=== PATIENT | female | born 1970 | race American Indian/Alaskan Native ===

== ENCOUNTER 2018-03-06 11:51 | Emergency (ER) | payer SELFPAY ==
[2018-03-06] MEDS ORDERED: CATAPRES PO ONE ×2 (12:25→22:41)
[2018-03-06] MEDS ORDERED: CATAPRES ONE ×2 (12:26→22:45)
--- NOTE | 2018-03-06 17:27 | Emergency Department Report ---
Blank Doc - Documentation Documentation: 48-year-old female with a past medical history of CHF with an unknown ejection fraction and hypertension presents to the hospital complaining of headache, shortness of breath, and generalized weakness, and swelling to lower extremities. Patient has not been completely compliant with all her medications filled last 2 days because she traveled here from [place] and did not bring all her medication. She flew here from [place] 4 days ago. She denies taking a diuretic. She complains of worsening orthopnea dyspnea with activity she denies chest pain. She received clonidine 0.2 mg in triage and reports improvement in her symptoms. Repeat blood pressure initially still elevated with further repeat pending Given patient's significant cardiac history patient will be transferred to the main side for evaluation Labs, chest x-ray, rn lab ordered No signs of ST elevation AK on EKG
--- NOTE | 2018-03-06 17:58 | XRay Report ---
FINAL REPORT EXAM: XR CHEST ROUTINE 2V HISTORY: sob TECHNIQUE: PA and lateral views of the chest Comparison: None FINDINGS: The cardiac silhouette is markedly enlarged. The thoracic aorta is unremarkable. There is prominence of the pulmonary venous vasculature suggestive of pulmonary venous congestion. There is no definite evidence of focal infiltrate or pleural fluid collection. The bony structures are unremarkable. IMPRESSION: 1. The cardiac silhouette is markedly enlarged. Comparison with previous imaging studies would be helpful. 2. Findings suggestive of pulmonary venous congestion. 3. No definite evidence of focal infiltrate.
[2018-03-06 18:24] LABS: Basophils # (Auto) 0.1 K/mm3 (0.0-0.1); Basophils % (Auto) 1.5 % (0.0-1.8); Eosinophils # (Auto) 0.1 K/mm3 (0.0-0.4); Eosinophils % (Auto) 1.2 % (0.0-4.3); Hematocrit 34.2 % (30.3-42.9); Hemoglobin 10.9 gm/dl (10.1-14.3); Lymphocytes # (Auto) 1.1 K/mm3 (1.2-5.4); Lymphocytes % (Auto) 18.2 % (13.4-35.0); Mean Corpuscular HGB Conc 32 % (30-34); Mean Corpuscular Volume 79 fl (79-97); Monocytes # (Auto) 0.4 K/mm3 (0.0-0.8); Monocytes % (Auto) 5.8 % (0.0-7.3); Platelet Count 286 K/mm3 (140-440); Red Blood Count 4.33 M/mm3 (3.65-5.03); Red Cell Distribution Width 18.1 % (13.2-15.2)
[2018-03-06 18:25] LABS: Mean Corpuscular Hemoglobin 25 pg (28-32)
[2018-03-06 18:35] LABS: INR 1.09 (0.87-1.13)
[2018-03-06 18:36] LABS: Partial Thromboplastin Time 26.1 Sec. (24.2-36.6)
[2018-03-06 18:40] LABS: Creatine Kinase MB 2.5 ng/mL (0.0-4.0)
[2018-03-06 18:43] LABS: Albumin 3.4 g/dL (3.9-5); Calcium 9.4 mg/dL (8.4-10.2)
[2018-03-06] MEDS ORDERED: LASIX IV ONE (18:45)
--- NOTE | 2018-03-06 18:50 | Emergency Department Report ---
HPI - General Chief Complaint: Headache Time Seen by Provider: 03/06/18 16:56 - HPI HPI: Room 36 The patient is a 48-year-old female presenting with a chief complaint of shortness of breath. The patient states she developed shortness of breath at 05 :30 this morning. The patient states she has had dyspnea on exertion as well as 2 pillow orthopnea for one week. Patient denies chest pain or fever. Patient states she's had a dry cough for 5 days. The patient states she has noticed bilateral lower extremity edema for the past 2 days. Patient reports she flew in from [place] 03/04/2018. The patient states she was taken off of her diuretic one year ago Location: Lungs, heart Duration: [See above] Quality: Shortness of breath Severity: Moderate Modifying factors: [see above] Context: [see above] Mode of transportation: [not driving] ED Past Medical Hx - Past Medical History Hx Hypertension: Yes Hx Congestive Heart Failure: Yes - Surgical History Additional Surgical History: c sect - Family History Family history: no significant - Social History Smoking Status: Never Smoker Substance Use Type: None (denies illicit drug use) - Medications Home Medications: Home Medications Medication Instructions Recorded Confirmed Last Taken Type Cardiazol 40 mg PO BID 03/06/18 03/06/18 02/27/18 07:00 History Carvedilol [Coreg] 25 mg PO BID #60 tablet 03/07/18 Unknown Rx Furosemide [Lasix] 20 mg PO QDAY #7 tablet 03/07/18 Unknown Rx hydrALAZINE 100 mg PO BID #60 03/07/18 Unknown Rx ED Review of Systems ROS: Stated complaint: SOB/CHEST PAINS Other details as noted in HPI Constitutional: denies: fever ENT: denies: throat pain Respiratory: cough, orthopnea, shortness of breath, SOB with exertion Cardiovascular: denies: chest pain Endocrine: no symptoms reported Gastrointestinal: denies: abdominal pain Genitourinary: denies: dysuria Musculoskeletal: denies: back pain Neurological: denies: headache Physical Exam - Physical Exam Vital Signs: Vital Signs 03/06/18 03/06/18 12:12 13:53 Temperature 97.9 F Pulse Rate 76 68 Respiratory 20 Rate Blood Pressure 197/111 Blood Pressure 184/112 [Left] O2 Sat by Pulse 100 Oximetry Physical Exam: GENERAL: The patient is well-developed well-nourished female lying on stretcher not appearing to be in acute distress. [] HEENT: Normocephalic. Atraumatic. Extraocular motions are intact. Patient has moist mucous membranes. NECK: Supple. Trachea midline CHEST/LUNGS: Clear to auscultation. There is no respiratory distress noted. HEART/CARDIOVASCULAR: Regular. There is no tachycardia. There is no gallop rub or murmur. ABDOMEN: Abdomen is soft, nontender. Patient has normal bowel sounds. There is no abdominal distention. SKIN: There is no rash. There is 1-2+ bilateral lower extremity pitting edema. There is no diaphoresis. NEURO: The patient is awake, alert, and oriented. The patient is cooperative. The patient has normal speech MUSCULOSKELETAL: There is no evidence of acute injury. ED Course Vital Signs 03/06/18 03/06/18 12:12 13:53 Temperature 97.9 F Pulse Rate 76 68 Respiratory 20 Rate Blood Pressure 197/111 Blood Pressure 184/112 [Left] O2 Sat by Pulse 100 Oximetry - Reevaluation(s) Reevaluation #1: 03/06/18 22:42 Patient states she feels much improved and prefers to go home ED Medical Decision Making - Lab Data Result diagrams: 03/06/18 18:09 03/06/18 18:09 Laboratory Tests 03/06/18 03/06/18 03/06/18 18:09 18:09 18:09 WBC 6.2 RBC 4.33 Hgb 10.9 Hct 34.2 MCV 79 MCH 25 L MCHC 32 RDW 18.1 H Plt Count 286 Lymph % (Auto) 18.2 [place] % (Auto) 5.8 Eos % (Auto) 1.2 Baso % (Auto) 1.5 Lymph # 1.1 L [place] # 0.4 Eos # 0.1 Baso # 0.1 Seg Neutrophils % 73.3 H Seg Neutrophils # 4.6 PT 14.7 INR 1.09 APTT 26.1 D-Dimer 260.96 H Sodium 139 Potassium 3.4 L Chloride 101.4 Carbon Dioxide 24 Anion Gap 17 BUN 25 H Creatinine 1.4 H Estimated GFR 49 BUN/Creatinine Ratio 18 Glucose 105 H Calcium 9.4 Total Bilirubin 0.80 AST 16 ALT 17 Alkaline Phosphatase 77 Total Creatine Kinase CK-MB (CK-2) CK-MB (CK-2) Rel Index Troponin T NT-Pro-B Natriuret Pep 00936 H Total Protein 7.2 Albumin 3.4 L Albumin/Globulin Ratio 0.9 Urine Color Urine Turbidity Urine pH Ur Specific [place] Urine Protein Urine Glucose (UA) Urine Ketones Urine Blood Urine Nitrite Urine Bilirubin Urine Urobilinogen Ur Leukocyte Esterase Urine WBC (Auto) Urine RBC (Auto) U Epithel Cells (Auto) Urine Bacteria (Auto) Urine Mucus 03/06/18 03/06/18 18:09 19:19 WBC RBC Hgb Hct MCV MCH MCHC RDW Plt Count Lymph % (Auto) [place] % (Auto) Eos % (Auto) Baso % (Auto) Lymph # [place] # Eos # Baso # Seg Neutrophils % Seg Neutrophils # PT INR APTT D-Dimer Sodium Potassium Chloride Carbon Dioxide Anion Gap BUN Creatinine Estimated GFR BUN/Creatinine Ratio Glucose Calcium Total Bilirubin AST ALT Alkaline Phosphatase Total Creatine Kinase 93 CK-MB (CK-2) 2.5 CK-MB (CK-2) Rel Index 2.6 Troponin T < 0.010 NT-Pro-B Natriuret Pep Total Protein Albumin Albumin/Globulin Ratio Urine Color Yellow Urine Turbidity Clear Urine pH 6.0 Ur Specific [place] 1.011 Urine Protein >500 Urine Glucose (UA) 50 Urine Ketones Neg Urine Blood Neg Urine Nitrite Neg Urine Bilirubin Neg Urine Urobilinogen 2.0 Ur Leukocyte Esterase Neg Urine WBC (Auto) 3.0 Urine RBC (Auto) 3.0 U Epithel Cells (Auto) 2.0 Urine Bacteria (Auto) 1+ Urine Mucus Few - EKG Data -: EKG Interpreted by Me EKG shows normal: sinus rhythm Rate: normal - EKG Data When compared to previous EKG there are: previous EKG unavailable Interpretation: nonspecific ST-T wave guido (T-wave inversion in leads V4, V5, V6) - Radiology Data Radiology results: report reviewed (chest x-ray, VQ scan), image reviewed ( chest x-ray, VQ scan) interpreted by me: Chest [id number]. No focal infiltrates or pneumothorax [facility] [address] [place] [address] XRay Report Signed Patient: CRISTIAN CHAVES MR#: [id number] : 1969 Acct:[id number] Age/Sex: 48 / F ADM Date: 03/06/18 Loc: ED Attending Dr: Ordering Physician: TONO LEACH MD Date of Service: 03/06/18 Procedure(s): XR chest routine 2V Accession Number(s): [id number] cc: TONO LEACH MD Fluoro Time In Minutes: FINAL REPORT EXAM: XR CHEST ROUTINE 2V HISTORY: sob TECHNIQUE: PA and lateral views of the chest Comparison: None FINDINGS: The cardiac silhouette is markedly enlarged. The thoracic aorta is unremarkable. There is prominence of the pulmonary venous vasculature suggestive of pulmonary venous congestion. There is no definite evidence of focal infiltrate or pleural fluid collection. The bony structures are unremarkable. IMPRESSION: 1. The cardiac silhouette is markedly enlarged. Comparison with previous imaging studies would be helpful. 2. Findings suggestive of pulmonary venous congestion. 3. No definite evidence of focal infiltrate. Transcribed By: ED Dictated By: KEMAR ARVIZU MD Electronically Authenticated By: KEMAR ARVIZU MD Signed Date/Time: 03/06/181756 DD/ 56 TD/TT: 03/06/181756 [facility] [address] [place] [address] Nuclear Medicine Report Signed Patient: CRISTIAN CHAVES MR#: [id number] : 1970 Acct:[id number] Age/Sex: 48 / F ADM Date: 03/06/18 Loc: ED Attending Dr: Ordering Physician: CHELI FLOYD MD Date of Service: 03/06/18 Procedure(s): NM lung scan perf/vent Accession Number(s): [id number] cc: CHELI FLOYD MD FINAL REPORT EXAM: NM LUNG SCAN PERF/VENT HISTORY: shortness of breath , elevated d-dimer TECHNIQUE: Ventilation-perfusion scan Ventilation study performed with 28.4 millicuries Xe-133 and 4.29 millicuries intravenous administration of technetium 99 M MAA PRIORS: Correlated with chest radiograph of the same date FINDINGS: Heart is enlarged There is homogeneous distribution the radiotracer on perfusion study. No definitive perfusion defects identified. On ventilation study there is normal washout of the radiotracer without evidence for significant air trapping. IMPRESSION: Negative. No scintigraphic evidence for acute pulmonary embolus Cardiomegaly Transcribed By: MARIAH Dictated By: DEJUAN HIDALGO MD Electronically Authenticated By: DEJUAN HIDALGO MD Signed Date/Time: 03/06/182206 DD/ 06 TD/TT: 03/06/182206 - Differential Diagnosis CHF exacerbation, PE Critical care attestation.: If time is entered above; I have spent that time in minutes in the direct care of this critically ill patient, excluding procedure time. ED Disposition Clinical Impression: CHF exacerbation, Shortness of breath, Hypertension Disposition: TO HOME OR SELFCARE Is pt being admited?: No Does the pt Need Aspirin: Yes Condition: Stable Instructions: Hypertension (ED) Additional Instructions: Return to the emergency department immediately should you develop worsening symptoms, fever, inability to tolerate food or liquid or any other concerns. Prescriptions: Carvedilol [Coreg] 25 mg PO BID #60 tablet Furosemide [Lasix] 20 mg PO QDAY #7 tablet hydrALAZINE 100 mg PO BID #60 Referrals: PRIMARY CAREMD [Primary Care Provider] - 3-5 Days Forms: Accompanied Note, Work/School Release Form(ED)
[2018-03-06 19:41] LABS: Bacteria,Urine 1+ /HPF (Negative); Bilirubin,Urine NEG (Negative); Blood,Urine NEG (Negative); Color,Urine Yellow (Yellow); Mucus,Urine FEW /HPF
[2018-03-06 19:48] LABS: Protein,Urine >500 mg/dL (Negative)
--- NOTE | 2018-03-06 22:08 | Nuclear Medicine Report ---
FINAL REPORT EXAM: NM LUNG SCAN PERF/VENT HISTORY: shortness of breath, elevated d-dimer TECHNIQUE: Ventilation-perfusion scan Ventilation study performed with 28.4 millicuries Xe-133 and 4.29 millicuries intravenous administration of technetium 99 M MAA PRIORS: Correlated with chest radiograph of the same date FINDINGS: Heart is enlarged There is homogeneous distribution the radiotracer on perfusion study. No definitive perfusion defects identified. On ventilation study there is normal washout of the radiotracer without evidence for significant air trapping. IMPRESSION: Negative. No scintigraphic evidence for acute pulmonary embolus Cardiomegaly
[2018-03-07] MEDS ORDERED: APRESOLINE IV ONE ×2 (00:45→01:29)
[2018-03-07 02:33] VITALS: BP 154/83
== END 2018-03-07 02:10 | disposition home or self-care (01) ==
LOC: ED 11:51
DX: R06.02 Shortness of breath (principal); R06.00 Dyspnea, unspecified; R05 Cough; I50.9 Heart failure, unspecified; I11.0 Hypertensive heart disease with heart failure
CPT/HCPCS: 36415; 71046; 78582; 80053; 81001; 82550; 82553; 83880; 84484; 85025; 85379; 85610; 85730; 93005; 93010; 96374; 96375; 96376; 99285; A9540; A9558; J0360; J1940